=== PATIENT | male | born 2000 | race Hispanic/Latino ===

== ENCOUNTER 2022-10-26 17:34 | Emergency (ER) | payer OTHER ==
[2022-10-26] MEDS ORDERED: Boostrix 0.5 ML (Tdap) VIAL (>/=7 yrs of age) ONE (18:47)
== END 2022-10-26 19:01 | disposition home or self-care (01) ==
LOC: CSHERS 17:34
DX: S61.431A Puncture wound without foreign body of right hand, initial encounter (principal); S60.221A Contusion of right hand, initial encounter; Z23 Encounter for immunization; W22.8XXA Striking against or struck by other objects, initial encounter
CPT/HCPCS: 90471; 90715